=== PATIENT | male | born 1990 | race Caucasian/White ===

== ENCOUNTER 2017-06-29 15:04 | Emergency (ER) | payer SELFPAY ==
[~2017-06-29] VITALS: Ht 172.7 cm; Wt 87.0 kg
[2017-06-29 15:25] VITALS: BP 130/79
== END 2017-06-30 01:45 | disposition left against medical advice (07) ==
LOC: ER 06-30 01:39
DX: Z53.21 Procedure and treatment not carried out due to patient leaving prior to being seen by health care provider (principal); F41.9 Anxiety disorder, unspecified; F12.10 Cannabis abuse, uncomplicated; F17.210 Nicotine dependence, cigarettes, uncomplicated

== ENCOUNTER 2018-07-09 15:10 | Emergency (ER) | payer SELFPAY ==
[~2018-07-09] VITALS: Ht 177.8 cm; Wt 90.0 kg
[2018-07-09] MEDS ORDERED: SODIUM CHLORIDE 0.9% 1,000 ML IV ONE ×2 (15:43→16:07)
[2018-07-09] MEDS ORDERED: MORPHINE SULFATE 10 MG/ML CPJ IV ONE (15:45)
[2018-07-09] MEDS ORDERED: ONDANSETRON HCL 4MG/2ML VIAL IV ONE (15:45)
[2018-07-09] MEDS ORDERED: CEFAZOLIN 1000MG PREMIX 50 ML IV ONE (16:45)
[2018-07-09 19:19] VITALS: BP 122/74
== END 2018-07-09 19:20 | disposition short-term general hospital (02) ==
LOC: ER 15:32
DX: S71.112A Laceration without foreign body, left thigh, initial encounter (principal); F12.10 Cannabis abuse, uncomplicated; F41.9 Anxiety disorder, unspecified; W45.8XXA Other foreign body or object entering through skin, initial encounter; Y93.89 Activity, other specified; Y92.89 Other specified places as the place of occurrence of the external cause; Y99.8 Other external cause status
CPT/HCPCS: 73552; 93005; 96365; 96375; 99291; J0690; J2270; J2405; J7030